=== PATIENT | male | born 1950 | race Caucasian/White ===

== ENCOUNTER 2018-01-29 07:16 | Inpatient (IN) | payer BC ==
[2018-01-16 15:21] VITALS: BMI 23.1
--- NOTE | 2018-01-29 07:56 | HP ---
[facility] - Chief Complaint Chief Complaint: right hip pain - Past Medical History Allergies/Adverse Reactions: Allergies Allergy/AdvReac Type Severity Reaction Status Date / Time No Known Drug Allergies Allergy Verified 01/16/18 15:05 - Current Medications Current Medications: Home Medications Medication Instructions Recorded Aspirin [Ecotrin] 81 mg PO DAILY 01/16/18 Calcium Carbonate [Calcium] 500 mg PO DAILY 01/16/18 Ferrous Bis-Glycinate Chelate 18 mg PO DAILY 01/16/18 [Ferrous Bisglycinate Chelate] Folic Acid 0.8 mg PO HS 01/16/18 Potassium 99 mg PO DAILY 01/16/18 Tadalafil [Cialis] 5 mg PO HS 01/16/18 Vitamin K2 100 mcg PO DAILY 01/16/18 [facility] Physical Exam - Physical Examination General Appearance: Well Nourished, Well Developed, Alert & Oriented x3 ENT: Clear Lung: Normal air movement Heart: Regular rate & rhythm Extremities: Other (right hip- + ttp, decr rom ,nvi xrays show grade 4 hip djd) Neurological: Intact, Alert, Oriented Satellite Impression/Plan - Impression/Plan Impression: right hip pain Operative Procedure: right juliocesar thr Date to be Performed: 01/29/18
[2018-01-29] MEDS ORDERED: CEFAZOLIN 2 GM in DEXTROSE 5%-WATER - 50 ML IVPB ONE (08:10)
[2018-01-29] MEDS ORDERED: TRANEXAMIC ACID 1000 MG/10 ML VIAL IVPUSH ONE (08:10)
[2018-01-29] MEDS: oxyCODONE HCL 10 MG SUSTAINED ACTING TABLET PO ONE (09:40)
[2018-01-29] MEDS: CELECOXIB 200 MG CAPSULE PO ONE (09:40)
[2018-01-29] MEDS: GABAPENTIN 300 MG CAPSULE (FP) PO ONE (09:40)
[2018-01-29] MEDS ORDERED: ceFAZolin SODIUM 1 GM VIAL ONE ×2 (10:03→12:08)
[2018-01-29] MEDS ORDERED: VANCOMYCIN 1,000 MG VIAL (RESTRICTED TO ID ONLY) ONE (10:03)
[2018-01-29] MEDS ORDERED: DEXAMETHASONE SOD PHOSPHATE/PF 10 MG/ML SDV ONE (10:39)
[2018-01-29] MEDS ORDERED: EPINEPHrine/PF 1 MG/1 ML (1:1,000) AMPULE ONE (10:39)
[2018-01-29] MEDS ORDERED: MIDAZOLAM HCL 2 MG/2 ML SINGLE DOSE VIAL ONE (10:39)
[2018-01-29] MEDS ORDERED: ROPIVACAINE HCL 0.5% 30ML VIAL ONE (10:39)
[2018-01-29] MEDS ORDERED: VANCOMYCIN 1,000 MG VIAL (RESTRICTED TO ID ONLY) IVPB ONE (12:09)
[2018-01-29] MEDS ORDERED: ONDANSETRON 4 MG/2 ML VIAL IVPUSH PRN (12:38)
[2018-01-29] MEDS ORDERED: MAGNESIUM HYDROX 2400MG/30ML ORAL SUSPENSION 30 ML CUP PO PRN (12:38)
[2018-01-29] MEDS ORDERED: MAG HYDROX/AL HYDROX/SIMETH 30 ML UNIT-DOSE CUP PO PRN (12:38)
--- NOTE | 2018-01-29 12:40 | OP ---
Operative Note - Note: Operative Date: 01/29/18 (kailey) Pre-Operative Diagnosis: right hip djd Operation: right juliocesar thr Post-Operative Diagnosis: Same as Pre-op Surgeon: Ward Freire Registered Nurse Behavioral Health: Stanley Hoskins Anesthesiologist/ASSOCIATE PROFESSOR OF AUTOMATION: Mark Garcia Anesthesia: Spinal, Local Specimens Removed: femoral head Estimated Blood Loss (mls): 200 Operative Report Dictated: Yes
[2018-01-29] MEDS ORDERED: LACTATED RINGERS SOLUTION 1,000 ML IV SCH (12:45)
[2018-01-29] MEDS ORDERED: ACETAMINOPHEN 325 MG TABLET (FP) PO ONE (14:00)
[2018-01-29] MEDS ORDERED: ACETAMINOPHEN 325 MG TABLET (FP) ONE (14:14)
[2018-01-29] MEDS ORDERED: oxyCODONE HCL 5 MG TABLET PO PRN (15:08)
--- NOTE | 2018-01-29 16:19 | SPEC ---
DATE OF OPERATION: 01/29/2018 PREOPERATIVE DIAGNOSIS: Degenerative joint disease right hip. POSTOPERATIVE DIAGNOSIS: Degenerative joint disease right hip. PROCEDURE PERFORMED: Right total hip replacement with robotic-assisted navigation (MAKOplasty). SURGICAL ATTENDING: Ward Freire MD AUDIO/VIDEO ENGINEER: LIZA Witt ANESTHESIA: Regional and spinal. CLOSURE: A [place] hip system with a 60 Tritanium II press-fit acetabulum, a number 9 Accolade II press-fit femoral stem, a 36 standard femoral head, number 1 Vicryl fascia, 0 and 2-0 subcutaneous, 3-0 Monocryl subcuticular with skin glue to close the to the skin, and 4-0 undyed Vicryl for pin sites. ESTIMATED BLOOD LOSS: Less than 100 mL. COMPLICATIONS: None. CONDITION: To the recovery room in stable condition. DESCRIPTION OF PROCEDURE: The patient was taken to the operating room on January 29, 2018. General and regional anesthesia was administered by the anesthesiologist. IV Kefzol and TXA were administered prophylactically prior to the case. The patient was placed in the lateral decubitus position will all prominences well-padded. The right hip area was prepped and draped in the usual sterile fashion. Using 3 small stab incisions over the iliac crest, 3 threaded pins were drilled in power fashion through the 2 tables of the crest. These pins were fastened and the navigation array for the Michel navigation system. Next, a 12 to 15-cm curved longitudinal incision over the posterolateral aspect of the greater trochanter was incised. Hemostasis was achieved with Bovie cautery. Sharp dissection was carried down to level of the fascia. The fascia was opened the entire length of the incision, spreading the fibers of the gluteus bernadine in the direction of origin. A Charnley retractor was placed in this layer. Care was taken not to impale the sciatic nerve. The short external rotators were detached off the insertion of the greater trochanter and peeled off the capsule. A posterior capsulotomy was then performed. A check point was malleted into the greater trochanter and a point on the inferior pole of the patella was obtained as well. These 2 points were used to assess the preoperative offset and limb lengths of the hip. The hip was then dislocated. The femoral neck was then osteotomized down to the appropriate level as directed by the navigation device. Anterior and posterior retractors were placed, exposing the acetabulum. A circumferential labral excision was performed. A check point was malleted into the acetabulum as well. Multiple sites inside the acetabulum and around the rim were utilized to register the acetabulum with the navigation device. An excellent registration of less than 0.5 mm was obtained. The hip was then reamed with the appropriate reamer down to the appropriate depth, with the appropriate orientation and version as assessed on our preoperative plan for this patient. The reamer was removed and the acetabulum was inspected to have good bleeding surfaces throughout. The real acetabular cup was then malleted down into place, with the holes in the appropriate position, until an excellent fixation was obtained. No screws were necessary. The navigation device ensured appropriate orientation and version, with the depth as predetermined. The appropriate liner was then clipped into place. Attention was directed to the femur. The proximal femur was prepared by use a box chisel, a canal finder and serial broaches until the broach achieved excellent rigidity in the proximal femur with the appropriate version being applied. A calcar planer was used to smooth off the calcar flush with the trial components. A trial reduction with the appropriate head was done, and the hip was reduced. The hip was taken through a range of motion from full extension with external rotation to marked flexion, and was stable at 90 degrees of flexion. It was stable to marked abduction and internal rotation, with a positive hang test and negative telescoping. Limb lengths were ascertained visually as well as with the navigation device to be within the targeted range for this patient. The trial component was removed. The real component was then malleted into place. The head was cold welded to the trunnion, and the hip was reduced. Range of motion, stability and limb lengths were as described in the trial component. Then the hip was pulse antibiotic irrigated. Vancomycin powder was placed in the hip joint. The capsule was closed. The fascia was then closed as well using number 1 Vicryl interrupted suture, 0 and 2-0 subcutaneous, and 3-0 V-Loc for the skin. 4-0 undyed Vicryl was used to close the pin sites after the pins were removed. All check points were also removed. Sterile Aquacel dressing was applied. The patient was awakened from anesthesia and transferred into the supine position. Bilateral SCDs and an abduction pillow were placed. X-rays revealed excellent position of the components. The patient was transferred to the recovery room in stable condition, with no complications. Estimated blood loss was less than 100 mL. Essie CHILDS/[id number] MTDD
[2018-01-29] MEDS: CEFAZOLIN 2 GM/D5W 2 GM/50 ML ML IVPB SCH (18:38)
[2018-01-29] MEDS: ACETAMINOPHEN 325 MG TABLET (FP) PO SCH (20:15)
[2018-01-29] MEDS: SENNOSIDES/DOCUSATE COMBO (SENNA PLUS) TABLET (UD) PO SCH (21:31)
[2018-01-29] MEDS: GABAPENTIN 300 MG CAPSULE (FP) PO SCH (21:31)
[2018-01-29] MEDS: oxyCODONE HCL 10 MG SUSTAINED ACTING TABLET PO SCH (21:31)
[2018-01-29] MEDS: oxyCODONE HCL 5 MG TABLET PO PRN (21:32)
[2018-01-30] MEDS: CEFAZOLIN 2 GM/D5W 2 GM/50 ML ML IVPB SCH (03:13)
[2018-01-30] MEDS: ACETAMINOPHEN 325 MG TABLET (FP) PO SCH ×3 (03:13→13:21)
[2018-01-30] MEDS: oxyCODONE HCL 5 MG TABLET PO PRN (06:23)
[2018-01-30] MEDS: GABAPENTIN 300 MG CAPSULE (FP) PO ONE (07:34)
[2018-01-30] MEDS: oxyCODONE HCL 10 MG SUSTAINED ACTING TABLET PO ONE (07:34)
[2018-01-30] MEDS: CELECOXIB 200 MG CAPSULE PO ONE (07:34)
[2018-01-30] MEDS ORDERED: ASPIRIN 325 MG TABLET PO SCH (08:00)
--- NOTE | 2018-01-30 08:10 | PN ---
Progress Note (short form) - Note Progress Note: Ortho Pt seen and examined s/p right juliocesar thr pod #1 Selected Entries 01/30/18 05:40 Temperature 98.0 F Pulse Rate 64 Respiratory 17 Rate Blood Pressure 102/64 Laboratory Tests 01/30/18 07:32 WBC Pending Hgb Pending Hct Pending Plt Count Pending dressing c/d/i, calf soft, nt nvi a/p PT hip precautions dvt ppx pain control ok to d/c home today pending PT
[2018-01-30 08:21] LABS: HEMATOCRIT 33.8 % (35.4-49); HEMOGLOBIN 11.5 GM/dl (11.7-16.9); MCH 32.5 pg (25.7-33.7); MCHC 33.9 g/dl (32.0-35.9); MEAN CELL VOLUME 95.8 fl (80-96); MEAN PLT VOLUME 9.7 fl (7.5-11.1); PLATELET COUNT 135 K/MM3 (134-434); RBC 3.53 M/mm3 (4.00-5.60); RDW 13.2 % (11.9-15.9); WHITE BLOOD COUNT 7.9 K/mm3 (4.0-10.8)
[2018-01-30] MEDS: oxyCODONE HCL 10 MG SUSTAINED ACTING TABLET PO SCH (09:53)
[2018-01-30] MEDS: SENNOSIDES/DOCUSATE COMBO (SENNA PLUS) TABLET (UD) PO SCH (09:53)
[2018-01-30] MEDS: GABAPENTIN 300 MG CAPSULE (FP) PO SCH (09:53)
[2018-01-30] MEDS ORDERED: MULTIVITAMINS (DAILY MVI) TABLET (FP) PO SCH (10:00)
[2018-01-30] MEDS ORDERED: FERROUS BIS GLYCINATE CHELATE PO SCH (10:00)
[2018-01-30] MEDS ORDERED: PANTOPRAZOLE 40 MG TABLET (FP) PO SCH (10:00)
[2018-01-30] MEDS ORDERED: POTASSIUM 99 MG PO SCH (10:00)
--- NOTE | 2018-01-30 10:51 | PN ---
Progress Note (short form) - Note Progress Note: 67M POD1 s/p R THR under spinal anesthetic with peripheral nerve blocks for post operative pain relief. Pt states that pain is well controlled and reports no anesthetic complications. AVSS. Motor and sensory function intact in bilateral lower extremities. Continue current regimen.
[2018-01-30 14:18] VITALS: BP 117/56; PULSE 74; TEMP 99
--- NOTE | 2018-01-30 15:00 | DS ---
Physical Examination Vital Signs: Vital Signs Temperature 99.0 F 01/30/18 14:16 Pulse Rate 74 01/30/18 14:16 Respiratory Rate 16 01/30/18 14:16 Blood Pressure 117/56 01/30/18 14:16 O2 Sat by Pulse Oximetry (%) 97 01/30/18 14:16 Labs: CBC, BMP 01/30/18 07:32 Discharge Summary Reason For Visit: OSTEOARTHRITIS Procedures: Principal: right thr Hospital Course: admitted for elective right juliocesar thr, uneventful post-op, stable for d/c Condition: Good - Instructions Diet, Activity, Other Instructions: Post-op Instructions-Total Hip Replacement Call the office for a follow-up appointment in 1 week - [phone] Aspirin 325mg daily for 6 weeks. Pain medication was sent into your pharmacy. Apply Graduated Compression Stockings (TEDs) to both lower extremities- remove daily for hygiene ONLY Apply Sequential Compression Device (SCDs) to both Lower extremities remove for PT and hygiene ONLY Apply cold packs to affected area for 15 minutes every 2 hours. Physical Therapist will come to your home for the first 5 days. You will be set up with outpatient PT at your first post-operative visit. Patient may ambulate as tolerated-encourage self care (at least every 2-3 hours while awake) with walker or cane Maintain Aquacel (waterproof) dressing to operative wound (will be removed by surgeon at first office visit) Shower with Aquacel dressing in place-if Aquacel integrity compromised, remove and apply dry sterile dressing and notify Orthopedist. DO NOT SHOWER unless Orthopedists approves without Aquacel dressing CONTACT THE OFFICE FOR ANY CHANGE IN YOUR CONDITION (for example-fever greater than 102 degrees, excessive bleeding from operative site, purulent drainage, severe swelling or pain) GO TO THE EMERGENCY ROOM IF THERE IS A MEDICAL EMERGENCY Hip Precautions: * Keep a rolled towel under affected heel while in bed or chair (to keep knee in extension) * Dependent upon approach: * Posterior - do not cross legs; do not sit on low chairs or toilets. * If you have any questions, please do not hesitate to call the office - . Referrals: Ward Freire MD [Staff Physician] - Disposition: VNS/HOME HEALTH CARE - Home Medications Comprehensive Discharge Medication List: Ambulatory Orders Calcium Carbonate [Calcium] 500 mg PO DAILY 01/16/18 Ferrous Bis-Glycinate Chelate [Ferrous Bisglycinate Chelate] 18 mg PO DAILY 01/26 Folic Acid 0.8 mg PO HS 01/16/18 Potassium 99 mg PO DAILY 01/16/18 Tadalafil [Cialis] 5 mg PO HS 01/16/18 Vitamin K2 100 mcg PO DAILY 01/16/18 Aspirin [ASA -] 325 mg PO DAILY@0800 tablet 01/29/18 Oxycodone HCl/Acetaminophen [Percocet 5-325 mg Tablet -] 1 - 2 tab PO Q6H #50 tab MDD 8 01/29/18
--- NOTE | 2018-02-04 15:14 | PATH ---
Surgical Pathology Report Patient Name: MARIO URIBE Med. Rec. #: [id number] /Age/Gender: 1950 (Age: 67) / M Account: [id number] Location: [facility] Taken: 01/29/2018 Received: 01/29/2018 Reported: 02/04/2018 Physicians: Ward Freire M.D. Specimen(s) Received RIGHT FEMORAL HEAD Clinical History Osteoarthritis right hip Final Diagnosis FEMORAL HEAD, RIGHT, TOTAL HIP REPLACEMENT: DEGENERATIVE JOINT DISEASE. Electronically Signed Lin Rosado M.D. Gross Description Received in formalin, labeled "right femoral head," is a 5.7 x 5.7 x 5.2 cm. femoral head with a 0.9 cm length portion of femoral neck attached. The margin of resection is smooth. There is a 5.7 cm greatest dimension area of eburnation present. The remaining articular surface is ortiz-yellow and diffusely granular. The underlying trabecular bone is yellow and hard. A sales representative raw fibers section is submitted in one cassette, following decalcification. 01/31/2018 [facility]01/31/2018
== END 2018-01-30 15:50 | disposition home health service (06) | DRG 470 ==
LOC: FM/S 07:16
PROVIDERS: ADMIT Orthopaedic Surgery; ATTEND Orthopaedic Surgery
PROC: 8E0W0CZ Robotic Assisted Procedure of Trunk Region, Open Approach (ICD-10-PCS; 2018-01-29)
PROC: 0SR90JA Replacement of Right Hip Joint with Synthetic Substitute, Uncemented, Open Approach (ICD-10-PCS; principal; 2018-01-29 11:00)
DX: M16.11 Unilateral primary osteoarthritis, right hip (principal)
CPT/HCPCS: 36415; 73502-TC-RT; 85027; 88304-TC; 88311-TC; 94760; 97116-GP; 97161-GP

== ENCOUNTER 2023-05-15 09:19 | Day surgery (SDC) | payer OTHER ==
[2023-05-11 14:35] VITALS: BMI 22.4
[2023-05-15] MEDS ORDERED: CEFAZOLIN SODIUM 2 GM in DEXTROSE 5%-WATER 100 ML IVPB ONE (10:10)
[2023-05-15] MEDS ORDERED: TRANEXAMIC ACID 1000 MG/10 ML VIAL IVPUSH ONE (10:10)
[2023-05-15] MEDS ORDERED: VANCOMYCIN 1,000 MG VIAL (RESTRICTED TO ID ONLY) ONE (10:45)
[2023-05-15] MEDS ORDERED: ceFAZolin SODIUM 1 GM VIAL ONE ×2 (10:45→12:31)
[2023-05-15] MEDS ORDERED: MIDAZOLAM HCL 2 MG/2 ML SINGLE DOSE VIAL ONE ×2 (10:53→12:04)
[2023-05-15] MEDS ORDERED: ROPIVACAINE HCL 0.5% 30ML VIAL ONE (10:53)
[2023-05-15] MEDS ORDERED: DEXAMETHASONE SOD PHOSPHATE/PF 10 MG/ML SDV ONE (10:59)
[2023-05-15] MEDS ORDERED: BUPIVACAINE HCL/PF 0.5% (5MG/ML) 10 ML VIAL ONE (11:56)
[2023-05-15] MEDS ORDERED: MAG HYDROX/AL HYDROX/SIMETH 30 ML UNIT-DOSE CUP PO PRN (12:21)
[2023-05-15] MEDS ORDERED: ONDANSETRON 4 MG/2 ML VIAL IVPUSH PRN ×2 (12:21→13:33)
[2023-05-15] MEDS ORDERED: GLYCOPYRROLATE 0.2 MG/1 ML VIAL ONE (12:27)
[2023-05-15] MEDS ORDERED: LACTATED RINGERS SOLUTION 1,000 ML IV SCH (12:30)
[2023-05-15] MEDS ORDERED: SODIUM CHLORIDE 0.9% P/F 10 ML VIAL IJ ONE (12:31)
[2023-05-15] MEDS ORDERED: TRANEXAMIC ACID 1000 MG/10 ML VIAL ONE (12:31)
[2023-05-15] MEDS ORDERED: PHENYLEPHRINE HCL 10 MG/1 ML SINGLE DOSE VIAL ONE ×2 (12:31→12:51)
[2023-05-15] MEDS ORDERED: LIDOCAINE HCL/PF 2% SDV 5ML VIAL ONE (12:34)
[2023-05-15] MEDS ORDERED: ACETAMINOPHEN 1000 MG/100 ML BAG IVPB ONE (13:33)
[2023-05-15] MEDS ORDERED: oxyCODONE HCL 5 MG TABLET PO PRN ×2 (13:33)
[2023-05-15 18:40] VITALS: RESP 18
[2023-05-15] MEDS: KETOROLAC TROMETHAMINE 30 MG/1 ML VIAL IVPUSH SCH (21:20)
[2023-05-15] MEDS: ACETAMINOPHEN 500 MG TABLET (FP) PO SCH (21:23)
[2023-05-15] MEDS: oxyCODONE HCL 10 MG SUSTAINED ACTING TABLET PO SCH (21:24)
[2023-05-15] MEDS: SENNOSIDES/DOCUSATE COMBO (SENNA PLUS) TABLET (UD) PO SCH (21:25)
[2023-05-15] MEDS: CEFAZOLIN SODIUM 2 GM in DEXTROSE 5%-WATER 100 ML IVPB SCH (21:25)
[2023-05-15] MEDS: LACTATED RINGERS SOLUTION 1,000 ML IV SCH (21:45)
[2023-05-16] MEDS: ACETAMINOPHEN 500 MG TABLET (FP) PO SCH ×4 (02:19→13:01)
[2023-05-16] MEDS: CEFAZOLIN SODIUM 2 GM in DEXTROSE 5%-WATER 100 ML IVPB SCH (06:17)
[2023-05-16] MEDS: KETOROLAC TROMETHAMINE 30 MG/1 ML VIAL IVPUSH SCH (06:26)
[2023-05-16] MEDS ORDERED: ASPIRIN 325 MG TABLET PO SCH (08:00)
[2023-05-16 08:28] LABS: HEMATOCRIT 35.3 % (35.4-49); HEMOGLOBIN 11.3 G/dL (11.7-16.9); MEAN CELL VOLUME 97.1 fl (80-96); MEAN PLT VOLUME 9.4 fl (7.5-11.1); PLATELET COUNT 253.2 10^3/uL (134-434); RBC 3.64 10^6/uL (4.00-5.60); RDW 14.1 % (11.9-15.9); WHITE BLOOD COUNT 10.3 10^3/uL (4.0-10.8)
[2023-05-16] MEDS: SENNOSIDES/DOCUSATE COMBO (SENNA PLUS) TABLET (UD) PO SCH (09:19)
[2023-05-16] MEDS: oxyCODONE HCL 10 MG SUSTAINED ACTING TABLET PO SCH (09:19)
[2023-05-16] MEDS ORDERED: FERROUS SO4 325 MG TABLET (FP) PO SCH (10:00)
[2023-05-16] MEDS ORDERED: PANTOPRAZOLE 40 MG TABLET PO SCH (10:00)
[2023-05-16] MEDS ORDERED: MULTIVITAMINS (DAILY MVI) TABLET (FP) PO SCH (10:00)
[2023-05-16] MEDS: LACTATED RINGERS SOLUTION 1,000 ML IV SCH (13:01)
[2023-05-16 14:53] VITALS: BP 119/67; PULSE 62; TEMP 98
== END 2023-05-16 15:53 | disposition home health service (06) ==
LOC: FASUSAT 09:19 → FM/S 15:53 → FASUSAT 05-16 15:53
PROVIDERS: ATTEND Orthopaedic Surgery
PROC: 8E0Y0CZ Robotic Assisted Procedure of Lower Extremity, Open Approach (ICD-10-PCS; 2023-05-15)
PROC: 0SRB0JA Replacement of Left Hip Joint with Synthetic Substitute, Uncemented, Open Approach (ICD-10-PCS; principal; 2023-05-15 12:22)
DX: M16.12 Unilateral primary osteoarthritis, left hip (principal)
CPT/HCPCS: 20985; 27130; C1776; S2900; 36415; 73502-TC-LT-FY; 85027; 94760; 97010-GP; 97110-GP; 97116-GP; 97162-GP